=== PATIENT | male | born 1990 | race Two or more races ===

== ENCOUNTER 2019-07-29 20:18 | Emergency (ER) | payer MEDICAID ==
[~2019-07-29] VITALS: Ht 165.1 cm; Wt 79.5 kg
[2019-07-29 21:36] LABS: BASOPHILS % (AUTO) 0.7 % (0.0-2.0); EOSINOPHILS % (AUTO) 1.8 % (1.0-6.0); HEMATOCRIT 43.7 % (41-53); HEMOGLOBIN 14.8 g/dL (13.5-17.5); LYMPHOCYTES # (AUTO) 3.5 K/uL (1.0-4.8); LYMPHOCYTES % (AUTO) 28.9 % (22.0-44.0); MEAN CORPUSCULAR HEMOGLOBIN 30.2 pg (26.0-34.0); MEAN CORPUSCULAR HGB CONC 33.9 G/dL (31.0-37.0); MEAN CORPUSCULAR VOLUME 89 fL (80-100); MONOCYTES % (AUTO) 8.3 % (2.0-9.0); NEUTROPHILS # (AUTO) 7.3 K/uL (1.8-7.7); NEUTROPHILS % (AUTO) 60.3 % (40.0-70.0); PLATELET COUNT (AUTO) 276 K/uL (150-450); RED CELL DISTRIBUTION WIDTH 13.9 % (11.5-14.5)
[2019-07-29 21:42] LABS: ANION GAP 9 mmol/L (8-16); CALCIUM, TOTAL 9.6 mg/dL (8.8-10.5); CARBON DIOXIDE 28 mmol/L (22-29); CHLORIDE 105 mmol/L (98-107); CREATININE 0.84 mg/dL (0.60-1.30); GLOMERULAR FILTR. RATE CALC > 60 mL/min (>60); GLUCOSE,RANDOM 84 mg/dL (70-110); POTASSIUM 4.1 mmol/L (3.5-5.1); SODIUM SERUM 142 mmol/L (136-145); UREA NITROGEN, BLOOD 16 mg/dL (7-18)
[2019-07-29 21:48] LABS: ALANINE AMINOTRANSFERASE 27 U/L (12-78); ALBUMIN 4.2 g/dL (3.4-5.0); ALKALINE PHOSPHATASE 76 U/L (46-116); ASPARTATE AMINOTRANSFERASE 14 U/L (15-37); BILIRUBIN,TOTAL 0.3 mg/dL (0.1-1.0); TOTAL PROTEIN, SERUM 7.6 g/dL (6.4-8.2)
[2019-07-29] MEDS ORDERED: ARIPiprazole 15 MG TABLET PO ONE (22:45)
[2019-07-29 23:22] VITALS: BP 124/80
== END 2019-07-30 | disposition home or self-care (01) ==
LOC: EMS 20:21
DX: F22 Delusional disorders (principal)
CPT/HCPCS: 36415; 80053; 85025; 99285; G0480

== ENCOUNTER 2019-07-30 02:33 | Inpatient (IN) | payer MEDICAID, OTHER ==
[~2019-07-30] VITALS: Ht 175.3 cm; Wt 81.2 kg
[2019-07-30] MEDS ORDERED: HALOPERIDOL 5 MG TABLET PO PRN (04:15)
[2019-07-30] MEDS ORDERED: ZOLPIDEM TARTRATE 10 MG TABLET PO PRN (04:15)
[2019-07-30 08:31] VITALS: BP 113/64
[2019-07-30] MEDS ORDERED: INFLUENZA VIRUS VACCINE QVS 2019-20 (3YR+)/PF 60 MCG/0.5 ML SYRINGE IM ONE (09:00)
[2019-07-30] MEDS: OLANZapine 5 MG TABLET PO SCH ×2 (10:25→21:00)
[2019-07-30 16:12] VITALS: BP 101/59
[2019-07-30] MEDS: LORazepam 2 MG TABLET PO PRN (17:22)
[2019-07-31] MEDS: OLANZapine 5 MG TABLET PO SCH ×2 (09:00→20:43)
[2019-07-31] MEDS ORDERED: LORazepam 2 MG/ML VIAL ONE (10:18)
[2019-07-31] MEDS ORDERED: HALOPERIDOL LACTATE 5 MG/ML VIAL ONE (10:19)
[2019-07-31] MEDS ORDERED: DiphenhydrAMINE HCL 50 MG/ML VIAL ONE (10:19)
[2019-07-31] MEDS ORDERED: DiphenhydrAMINE HCL 50 MG/ML VIAL IM ONE (10:30)
[2019-07-31] MEDS ORDERED: LORazepam 2 MG/ML VIAL IM ONE (10:30)
[2019-07-31] MEDS ORDERED: HALOPERIDOL LACTATE 5 MG/ML VIAL IM ONE (10:30)
[2019-08-01 09:29] VITALS: BP 128/68
[2019-08-01] MEDS: OLANZapine 5 MG TABLET PO SCH ×2 (09:59→20:55)
[2019-08-01 17:51] VITALS: BP 131/89
[2019-08-02 06:17] VITALS: BP_DIAS 85
[2019-08-02] MEDS: OLANZapine 5 MG TABLET PO SCH ×2 (09:00→21:37)
[2019-08-02] MEDS ORDERED: OLANZapine 10 MG TABLET PO SCH (14:30)
[2019-08-02 16:46] VITALS: BP 138/79
[2019-08-03 08:24] VITALS: BP 132/81
[2019-08-03] MEDS: OLANZapine 5 MG TABLET PO SCH (08:28)
[2019-08-03] MEDS: LORazepam 2 MG TABLET PO PRN (08:28)
[2019-08-03] MEDS ORDERED: OLAN5TAB27 PO (10:13)
== END 2019-08-03 14:55 | disposition home or self-care (01) | DRG 750 ==
LOC: EMS 02:33 → B3A 05:13
DX: F20.0 Paranoid schizophrenia (principal); I95.9 Hypotension, unspecified; D72.829 Elevated white blood cell count, unspecified; F12.10 Cannabis abuse, uncomplicated; F19.10 Other psychoactive substance abuse, uncomplicated; Z91.018 Allergy to other foods; Z59.0 Homelessness
CPT/HCPCS: J1200; J1630; J2060